=== PATIENT | female | born 1975 | race Caucasian/White ===

== ENCOUNTER → 2016-11-06 | Outpatient (CLI) | payer BC | END | disposition home or self-care (01) | LOC: LABWHC1 06:56 | PROVIDERS: ATTEND Internal Medicine Endocrinology, Diabetes & Metabolism | DX: E03.9 Hypothyroidism, unspecified (principal) | CPT/HCPCS: 36415; 84443 ==

== ENCOUNTER → 2017-05-08 | Outpatient (CLI) | payer BC | END | disposition home or self-care (01) | LOC: LABWHC1 06:40 | PROVIDERS: ATTEND Internal Medicine Endocrinology, Diabetes & Metabolism | DX: E03.8 Other specified hypothyroidism (principal) | CPT/HCPCS: 36415; 84443 ==

== ENCOUNTER → 2018-03-08 | Outpatient (CLI) | payer BC ==
--- NOTE | 2018-03-11 15:00 | MM ---
Reason for exam: screening (asymptomatic). Last mammogram was performed 5 years and 1 month ago. Physical Findings: A clinical breast exam by your physician is recommended on an annual basis and results should be correlated with mammographic findings. MG Screening Mammo w CAD Bilateral CC and MLO view(s) were taken. Prior study comparison: February 03, 2013, bilateral digital screening mammo w/CAD. There is chronic nodularity in the right breast. No significant changes when compared with prior studies. ASSESSMENT: Benign, BI-RAD 2 RECOMMENDATION: Routine screening mammogram of both breasts in 1 year.
== END | disposition home or self-care (01) ==
LOC: RADMAMWWP 06:47
PROVIDERS: ATTEND Internal Medicine Geriatric Medicine
DX: Z12.31 Encounter for screening mammogram for malignant neoplasm of breast (principal)
CPT/HCPCS: 77067

== ENCOUNTER → 2018-05-22 | Outpatient (CLI) | payer BC | END | disposition home or self-care (01) | LOC: LABWHC1 11:39 | PROVIDERS: ATTEND Internal Medicine Endocrinology, Diabetes & Metabolism | DX: E03.8 Other specified hypothyroidism (principal) | CPT/HCPCS: 36415; 84443 ==

== ENCOUNTER → 2019-01-02 | Outpatient (CLI) | payer BC | LOC: LABWHC1 12:18 | PROVIDERS: ATTEND Internal Medicine Endocrinology, Diabetes & Metabolism | DX: E03.8 Other specified hypothyroidism (principal) | CPT/HCPCS: 36415; 84443 ==

== ENCOUNTER → 2019-07-01 | Outpatient (CLI) | payer BC | END | disposition home or self-care (01) | LOC: LABWHC1 06:28 | PROVIDERS: ATTEND Internal Medicine Endocrinology, Diabetes & Metabolism | DX: E03.8 Other specified hypothyroidism (principal) | CPT/HCPCS: 36415; 84443 ==

== ENCOUNTER → 2020-06-18 | Outpatient (CLI) | payer BC ==
[2020-06-18 08:32] LABS: Basophils # (A) 0.1 k/uL (0-0.2); Basophils % (A) 1 %; Eosinophils # (A) 0.3 k/uL (0-0.7); Eosinophils % (A) 5 %; HCT 46.3 % (34.0-46.0); HGB 15.1 gm/dL (11.4-16.0); Lymphocytes # (A) 1.8 k/uL (1.0-4.8); Lymphocytes % (A) 27 %; MCH 30.9 pg (25.0-35.0); MCHC 32.6 g/dL (31.0-37.0); MCV 94.6 fL (80.0-100.0); Mean Platelet Volume 8.9; Monocytes # (A) 0.3 k/uL (0-1.0); Monocytes % (A) 5 %; Neutrophils # (A) 4.1 k/uL (1.3-7.7); Neutrophils % (A) 60 %; Platelet Count 226 k/uL (150-450); RBC 4.89 m/uL (3.80-5.40); RDW 12.6 % (11.5-15.5); WBC 6.7 k/uL (3.8-10.6)
[2020-06-18 16:33] LABS: Hemoglobin A1C 5.4 % (4.0-6.0)
[2020-06-18 17:36] LABS: African American GFR (CKD) 91.4 (60.0-200.0); Albumin 4.3 g/dL (3.80-4.90); Albumin/Globulin Ratio 2.15 (1.60-3.17); Anion Gap 11.1 mmol/L (4.00-12.00); BUN/Creat Ratio 15.56 Ratio (12.00-20.00); Calcium 9.3 mg/dL (8.7-10.3); Carbon Dioxide 23.9 mmol/L (21.6-31.8); Chol/HDL Ratio 4.84; Non-African American GFR(CKD) 78.9 (60.0-200.0); Potassium 4.5 mmol/L (3.5-5.5); Total Bilirubin 0.4 mg/dL (0.2-1.2); Total Protein 6.3 g/dL (6.2-8.2)
== END | disposition home or self-care (01) ==
LOC: LABWHC1 07:33
PROVIDERS: ATTEND Internal Medicine Endocrinology, Diabetes & Metabolism
DX: E03.8 Other specified hypothyroidism (principal); E78.5 Hyperlipidemia, unspecified; L02.622 Furuncle of left foot
CPT/HCPCS: 36415; 80053; 80061; 83036; 84439; 84443; 85025

== ENCOUNTER → 2020-11-04 | Outpatient (CLI) | payer BC ==
[2020-11-04 16:19] LABS: African American GFR (CKD) 91.4 (60.0-200.0); Albumin 4.5 g/dL (3.80-4.90); Albumin/Globulin Ratio 2.81 (1.60-3.17); Anion Gap 8.6 mmol/L (4.00-12.00); BUN/Creat Ratio 15.56 Ratio (12.00-20.00); Calcium 9.5 mg/dL (8.7-10.3); Carbon Dioxide 24.4 mmol/L (21.6-31.8); Globulin 1.6 g/dL (1.6-3.3); Non-African American GFR(CKD) 78.9 (60.0-200.0); Potassium 4.4 mmol/L (3.5-5.5); Total Bilirubin 0.4 mg/dL (0.2-1.2); Total Protein 6.1 g/dL (6.2-8.2)
== END | disposition home or self-care (01) ==
LOC: LABWHC1 07:48
PROVIDERS: ATTEND Internal Medicine Endocrinology, Diabetes & Metabolism
DX: E03.8 Other specified hypothyroidism (principal); Z86.32 Personal history of gestational diabetes
CPT/HCPCS: 36415; 80053; 84443

== ENCOUNTER → 2020-11-04 | Outpatient (CLI) | payer BC ==
--- NOTE | 2020-11-05 13:59 | MM ---
Reason for exam: screening (asymptomatic). Last mammogram was performed 2 years and 8 months ago. History: Family history of breast cancer in paternal grandmother. Physical Findings: A clinical breast exam by your physician is recommended on an annual basis and results should be correlated with mammographic findings. MG 3D Screening Mammo W/Cad Bilateral CC and MLO view(s) were taken. Prior study comparison: March 08, 2018, bilateral MG screening mammo w CAD. February 03, 2013, bilateral digital screening mammo w/CAD. The breast tissue is heterogeneously dense. This may lower the sensitivity of mammography. There is no discrete abnormality. No significant changes when compared with prior studies. ASSESSMENT: Benign, BI-RAD 2 RECOMMENDATION: Routine screening mammogram of both breasts in 1 year.
== END | disposition home or self-care (01) ==
LOC: RADMAMWWP 07:31
PROVIDERS: ATTEND Internal Medicine Geriatric Medicine
DX: Z12.31 Encounter for screening mammogram for malignant neoplasm of breast (principal)
CPT/HCPCS: 77063; 77067

== ENCOUNTER → 2021-06-28 | Outpatient (CLI) | payer BC | END | disposition home or self-care (01) | LOC: LABWHC1 07:27 | PROVIDERS: ATTEND Internal Medicine Endocrinology, Diabetes & Metabolism | DX: E03.8 Other specified hypothyroidism (principal); Z86.32 Personal history of gestational diabetes | CPT/HCPCS: 36415; 83036; 84443 ==

== ENCOUNTER → 2021-11-09 | Outpatient (CLI) | payer BC ==
--- NOTE | 2021-11-11 12:24 | MM ---
Reason for exam: screening (asymptomatic). Last mammogram was performed 1 year ago. History: Family history of breast cancer in paternal grandmother. Physical Findings: A clinical breast exam by your physician is recommended on an annual basis and results should be correlated with mammographic findings. MG 3D Screening Mammo W/Cad Bilateral CC and MLO view(s) were taken. Prior study comparison: November 04, 2020, bilateral MG 3d screening mammo w/cad. March 08, 2018, bilateral MG screening mammo w CAD. There are scattered fibroglandular densities. New 1cm circumscribed nodule lower inner quadrant right breast. A second smaller nodule on the right posterior and lateral. ASSESSMENT: Incomplete: need additional imaging evaluation, BI-RAD 0 RECOMMENDATION: Special view mammogram and ultrasound of the right breast. [facility] will attempt to contact patient to return for supplemental views and ultrasound.
== END | disposition home or self-care (01) ==
LOC: RADMAMWWP 11:19
PROVIDERS: ATTEND Internal Medicine Geriatric Medicine
DX: Z12.31 Encounter for screening mammogram for malignant neoplasm of breast (principal); Z80.3 Family history of malignant neoplasm of breast
CPT/HCPCS: 77063; 77067

== ENCOUNTER → 2021-11-17 | Outpatient (CLI) | payer BC ==
--- NOTE | 2021-11-17 12:16 | MM ---
Reason for exam: additional evaluation requested from abnormal screening. Last mammogram was performed less than 1 month ago. History: Family history of breast cancer in paternal grandmother. Physical Findings: A clinical breast exam by your physician is recommended on an annual basis and results should be correlated with mammographic findings. MG 3D Work Up W/Cad RT CC, MLO, ML, and XCCL view(s) were taken of the right breast. Prior study comparison: November 09, 2021, bilateral MG 3d screening mammo w/cad. November 04, 2020, bilateral MG 3d screening mammo w/cad. The breast tissue is heterogeneously dense. This may lower the sensitivity of mammography. Finding: There is a new intermediate concern, suspicious equal density (isodense), circumscribed oval mass in the lower inner quadrant, middle position of the right breast and outer CC view. New finding since November 09, 2021 and November 04, 2020. These results were verbally communicated with the patient and result sheet given to the patient on 11/17/21. ASSESSMENT: Incomplete: need additional imaging evaluation, BI-RAD 0 RECOMMENDATION: Ultrasound of the right breast.
--- NOTE | 2021-11-17 12:18 | USB ---
Reason for exam: additional evaluation requested from abnormal screening. History: Family history of breast cancer in paternal grandmother. US Breast Workup Limited RT Technologist: Imelda Rivero Right limited breast ultrasound including focal area of concern, retroareolar and axilla demonstrates a 0.4 x 0.4 x 0.2cm cystic lesion at 4 o'clock, a 0.9 x 0.8 x 0.5cm cystic cluster versus complicated lesion at 5 o'clock, a 0.3 x 0.4 x 0.3cm cystic lesion at 9 o'clock and a 0.6 x 0.6 x 0.5cm cystic cluster versus complicated lesion at 8 o'clock. These results were verbally communicated with the patient and result sheet given to the patient on 11/17/21. ASSESSMENT: Probably benign, BI-RAD 3 RECOMMENDATION: Follow-up diagnostic mammogram of the right breast in 6 months.
== END | disposition home or self-care (01) ==
LOC: RADMAMWWP 07:30
PROVIDERS: ATTEND Internal Medicine Geriatric Medicine
DX: R92.8 Other abnormal and inconclusive findings on diagnostic imaging of breast (principal); Z80.3 Family history of malignant neoplasm of breast
CPT/HCPCS: 77061; 77065

== ENCOUNTER → 2021-12-27 | Outpatient (CLI) | payer BC | END | disposition home or self-care (01) | LOC: LABWHC1 07:30 | PROVIDERS: ATTEND Internal Medicine Endocrinology, Diabetes & Metabolism | DX: E03.8 Other specified hypothyroidism (principal) | CPT/HCPCS: 36415; 84443 ==

== ENCOUNTER → 2022-05-24 | Outpatient (CLI) | payer BC ==
--- NOTE | 2022-06-01 09:58 | MM ---
Reason for Exam: Follow-up at short interval from prior study. Last screening mammogram was performed 7 month(s) ago. Patient History: Menarche at age 15. First Full-Term at age 30. Paternal grandmother had breast cancer. Risk Values: Clemencia 5 year model risk: 0.9%. NCI Lifetime model risk: 10.7%. Prior Study Comparison: 02/03/2013 Bilateral Screening Mammogram, [facility]. 03/08/2018 Bilateral Screening Mammogram, [facility]. 11/04/2020 Bilateral Screening Mammogram, [facility]. 11/09/2021 Bilateral Screening Mammogram, [facility]. 11/17/2021 Right Diagnostic Mammogram, [facility]. 11/17/2021 Right Diagnostic Ultrasound, [facility]. Tissue Density: The breast tissue is heterogeneously dense. This may lower the sensitivity of mammography. Findings: Analyzed By CAD. Stable small well-defined mass in the right breast upper-outer quadrant. Occasional scattered benign-appearing round calcification in the bilateral breasts is redemonstrated. Asymmetric prominent tissue in the upper aspect left breast is unchanged from prior studies. No new distortion or suspicious group of microcalcification in either breast. Overall Assessment: Benign, BI-RAD 2 Management: Screening Mammogram of both breasts in 1 year. A clinical breast exam by your physician is recommended on an annual basis and results should be correlated with mammographic findings. This exam should not preclude additional follow-up of suspicious palpable abnormalities. Electronically signed and approved by: Kieran Greenfield M.D.
== END | disposition home or self-care (01) ==
LOC: RADMAMWWP 06:46
PROVIDERS: ATTEND Internal Medicine Geriatric Medicine
DX: R92.1 Mammographic calcification found on diagnostic imaging of breast (principal); Z80.3 Family history of malignant neoplasm of breast
CPT/HCPCS: 77062; 77066

== ENCOUNTER → 2022-07-25 | Outpatient (CLI) | payer BC | END | disposition home or self-care (01) | LOC: LABWHC1 07:23 | PROVIDERS: ATTEND Internal Medicine Endocrinology, Diabetes & Metabolism | DX: E03.8 Other specified hypothyroidism (principal); Z86.32 Personal history of gestational diabetes | CPT/HCPCS: 36415; 83036; 84443 ==

== ENCOUNTER → 2023-06-07 | Outpatient (CLI) | payer BC ==
--- NOTE | 2023-06-07 11:56 | MM ---
Reason for Exam: Screening (asymptomatic). Last screening mammogram was performed 12 month(s) ago. Patient History: Menarche at age 15. First Full-Term at age 27. Postmenopausal. Patient has history of breast feeding. Paternal grandmother had breast cancer. Risk Values: Clemencia 5 year model risk: 0.9%. NCI Lifetime model risk: 10.6%. Prior Study Comparison: 03/08/2018 Bilateral Screening Mammogram, [facility]. 11/04/2020 Bilateral Screening Mammogram, [facility]. 11/09/2021 Bilateral Screening Mammogram, [facility]. 11/17/2021 Right Diagnostic Mammogram, [facility]. 05/24/2022 Bilateral MG 3D diag mammo w/cad [facility], [facility]. Tissue Density: The breast tissue is heterogeneously dense. This may lower the sensitivity of mammography. Findings: Analyzed By CAD. There is a nodule in the central margin of the right breast. Chronic nodularity in the right breast. Benign-appearing calcifications. Overall Assessment: Incomplete: need additional imaging evaluation, BI-RAD 0 Management: Diagnostic Mammogram of the right breast. . Patient should continue monthly self-breast exams. A clinical breast exam by your physician is recommended on an annual basis. This exam should not preclude additional follow-up of suspicious palpable abnormalities. Note on Clemencia scores and lifetime risk: 1. A Clemencia score greater than 3% is considered moderate risk. If this is the case, consider specialist referral to assess eligibility for a risk reducing agent. 2. If overall lifetime risk for the development of breast cancer is 20% or higher, the patient may qualify for future screening with alternating mammogram and breast MRI. Electronically signed and approved by: Adalberto Smyth M.D. Radiologis
== END | disposition home or self-care (01) ==
LOC: RADMAMWWP 06:53
PROVIDERS: ATTEND Internal Medicine Geriatric Medicine
DX: Z12.31 Encounter for screening mammogram for malignant neoplasm of breast (principal); Z78.0 Asymptomatic menopausal state; Z80.3 Family history of malignant neoplasm of breast
CPT/HCPCS: 77063; 77067

== ENCOUNTER 2023-08-07 08:10 | Day surgery (SDC) | payer BC ==
[2023-08-02 16:55] VITALS: BMI 36.6
[~2023-08-07 08:10] MED LIST: LACTATED RINGERS 1,000 ML IV SCH
[2023-08-07 09:23] VITALS: RESP 18; TEMP 97.1
[2023-08-07] MEDS ORDERED: PROPOFOL 10 MG/ML 20 ML VIAL IV ONE (10:10)
--- NOTE | 2023-08-07 10:28 | P.PCN ---
Date of Procedure: 08/07/23 Procedure(s) Performed: BRIEF HISTORY: Patient is a 47-year-old pleasant female scheduled for an elective colonoscopy as a part of screening for colon cancer. Both her grandparents were diagnosed with colon cancer in his 60s and 70s suspect family. PROCEDURE PERFORMED: Colonoscopy with snare polypectomy. PREOPERATIVE DIAGNOSIS: Screening for colon cancer. IV sedation per Anesthesia. PROCEDURE: After informed consent was obtained, the patient, was brought into the endoscopy unit. IV sedation was administered by Anesthesia under continuous monitoring. Digital rectal examination was normal. Initially the Olympus CF-160 flexible video colonoscope was then inserted in the rectum, gradually advanced into the cecum without any difficulty. Careful examination was performed as the scope was gradually being withdrawn. Ileocecal valve and the appendiceal orifice were visualized and appeared normal. Prep was excellent. Mucosa of the cecum, had a 1 cm linear polyp that was removed by snare polyp polypectomy. On the ileocecal valve there was a 7 mm polyp that was removed by snare polypectomy. In the ascending colon there were 2 polyps measuring 5 mm in size removed by snare polypectomy. Rest of the ascending colon, transverse colon, descending colon, sigmoid colon, and rectum appeared normal. Retroflexion was performed in the rectum and no lesions were seen. The patient tolerated the procedure well. IMPRESSION: 1 cm linear cecal polyp status post polypectomy 7 mm polyp in the ileocecal valve status post polypectomy 5 mm at times reasoning colon polyp status post polypectomy RECOMMENDATIONS: Findings of this examination were discussed with the patient as well as a family. She was advised tofollow with the biopsy results. If the biopsy results revealed adenoma she can have a repeat colonoscopy in 3 years.
[2023-08-07 10:55] VITALS: BP 137/78; PULSE 78
== END 2023-08-07 11:00 | disposition home or self-care (01) ==
LOC: ORWHC2ENDO 08:10
PROVIDERS: ATTEND Internal Medicine Gastroenterology
DX: Z12.11 Encounter for screening for malignant neoplasm of colon (principal); D12.0 Benign neoplasm of cecum; D12.2 Benign neoplasm of ascending colon; E07.9 Disorder of thyroid, unspecified; K21.9 Gastro-esophageal reflux disease without esophagitis; Z79.899 Other long term (current) drug therapy; Z80.0 Family history of malignant neoplasm of digestive organs; Z79.890 Hormone replacement therapy
CPT/HCPCS: 81025; 45385; J2704; 88305

== ENCOUNTER → 2024-06-27 | Outpatient (CLI) | payer BC ==
--- NOTE | 2024-06-27 07:39 | MM ---
Reason for Exam: Additional evaluation requested from prior study. Last mammogram was performed 1 year(s) and 1 month(s) ago. Patient History: Menarche at age 15. First Full-Term at age 27. Postmenopausal. Patient has history of breast feeding. Currently using Progesterone, starting at age 47. Paternal grandmother had breast cancer. Risk Values: Clemencia 5 year model risk: 0.9%. NCI Lifetime model risk: 10.5%. Prior Study Comparison: 03/08/2018 Bilateral Screening Mammogram, [facility]. 11/04/2020 Bilateral Screening Mammogram, [facility]. 11/09/2021 Bilateral Screening Mammogram, [facility]. 11/17/2021 Right Diagnostic Mammogram, [facility]. 05/24/2022 Bilateral MG 3D diag mammo w/cad [facility], [facility]. 06/07/2023 Bilateral MG 3D screening mammo w/cad, [facility]. 06/13/2023 Right MG 3D work up w/cad RT, [facility]. Tissue Density: The breasts are heterogeneously dense, which may obscure small masses. Findings: Analyzed By CAD. No evidence for mass or distortion. No suspicious calcifications seen. Overall Assessment: Negative, BI-RAD 1 Management: Screening Mammogram of both breasts in 1 year. . Results were given to the patient verbally at the time of exam. Patient should continue monthly self-breast exams. A clinical breast exam by your physician is recommended on an annual basis. This exam should not preclude additional follow-up of suspicious palpable abnormalities. Note on Clemencia scores and lifetime risk: 1. A Clemencia score greater than 3% is considered moderate risk. If this is the case, consider specialist referral to assess eligibility for a risk reducing agent. 2. If overall lifetime risk for the development of breast cancer is 20% or higher, the patient may qualify for future screening with alternating mammogram and breast MRI. [facility], , 06/27/2024 7:36 AM. Electronically signed and approved by: Zacarias More M.D. Radiologis
== END | disposition home or self-care (01) ==
LOC: RADMAMWWP 06:51
PROVIDERS: ATTEND Internal Medicine Geriatric Medicine
DX: R92.8 Other abnormal and inconclusive findings on diagnostic imaging of breast
CPT/HCPCS: 77062; 77066